=== PATIENT | male | born 1985 | race Caucasian/White ===

== ENCOUNTER 2024-05-22 21:55 | Emergency (ER) | payer OTHER, SELFPAY ==
[2024-05-22 22:01] VITALS: BP 157/83; PULSE 104; RESP 18; TEMP 37.1; O2SAT 98
[2024-05-22] MEDS: ONDANSETRON ODT 4 MG TAB PO (22:36)
[2024-05-22] MEDS: KETOROLAC 10 MG TABLET PO (22:37)
[2024-05-22 22:42] VITALS: BP 142/77; PULSE 104; RESP 18; O2SAT 94
--- OUTSIDE RECORDS SUMMARY | 2024-05-22 22:45 | XMS_ITS | Referral Summary ---
Author Organization [facility] Address [address] [place] [address] Care Team Providers Care Lpn Or Medical Assistant Name Role Phone No Ref-Primary, Physician Primary Care Provider Carlton Levy MD Unavailable [phone] Luciana Austin PA-C Unavailable [phone] Allergies Active Allergy Reactions Criticality Noted Date Comments Cockroach 07/30/2014 Dust Mites 07/30/2014 No Known Drug Allergy 04/16/2012 Shrimp 03/31/2019 Medications EPINEPHrine (EPIPEN/ADRENAC LICK/OR ANY BX GENERIC EQUIV) 0.3 MG/0.3ML injection 2-pack Inject 0.3 mLs (0.3 mg) into the muscle once as needed for anaphylaxis 2 each 0 Active Additional Information Patient not taking.Reported on 09/07/2019 Active Problems Problem Noted Date Diagnosed Date Degeneration of cervical intervertebral disc Brachial neuritis or radiculitis 08/02/2016 Adjustment disorder with mixed anxiety and depre ssed mood 03/08/2015 Parent-child relational problem 03/08/2015 Benign mole 07/03/2014 Overview (07/03/2014): inflamed CARDIOVASCULAR SCREENING; LDL GOAL LESS THAN 130 01/25/2012 Intermittent asthma Immunizations Name Administration Dates Next Due Influenza (IIV3) PF 12/31/2011 TDAP Vaccine (Adacel) 01/25/2012 Social History Tobacco Use Types Packs/Day Years Used Date Smoking Tobacco: Former Cigarettes Smokeless Tobacco: Never Tobacco Cessation:Counseling Given: Not Answered Alcohol Use Standard Drinks/Week Comments Yes 0 (1 standard drink = 0.6 oz pur e alcohol) 1-2/month PHQ-2 Answer Date Recorded PHQ-2 Score 0 11/20/2022 Adolescent Education Answer Date Record ed Getting School Help Needed Not on file 02/03 Sex and Gender Information Value Date Recorded Sex Assigned at Male 11/19/2022 11:58 PM CDT 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 Gender Identity Not on file Sexual Orientation Not on file 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 Not on file Not on file Last Filed Vital Signs Vital Sign Reading Time Taken Comments Blood Pressure 116/70 03/06/2023 6:00 PM CDT Pulse 86 03/06/2023 6:00 PM CDT Temperature 36.8 C (98.3 F) 10/10/2019 6:20 PM CDT Respiratory Rate 26 03/06/2023 6:00 PM CDT Oxygen Saturation 91% 03/06/2023 6:00 PM CDT Inhaled Oxygen Concentration - - Weight 81.6 kg (180 lb) 03/06/2023 4:38 PM CDT Height 165.1 cm (5' 5) 03/06/2023 4:38 PM CDT Body Mass Index 29.95 03/06/2023 4:38 PM CDT Plan of Treatment Not on file Procedures Procedure Name Priority Date/Time Associated Diagnosis Comments BASIC METABOLIC PANEL STAT 10/10/2019 8:55 PM CDT ASTHMA ACTION PLAN Routine 08/22/2016 3: 30 PM CDT Mild intermittent asthma without complication HIV ANTIGEN ANTIBODY COMBO Routine 12/09/2014 4:55 PM CDT Exposure to STD HEPATITIS C ANTIBODY Routine 12/09/2014 4:55 PM CDT Exposure to STD from Last 3 Months or Most Recently Relevant to Health Maintenance Results * (ABNORMAL) Basic metabolic panel (10/10/2019 8:55 PM CDT) Sodium 139 133 - 144 mmol/L 10/10/2019 9:24 PM CDT [facility] Potassium 3.6 3.4 - 5.3 mmol/L 10/10/2019 9:24 PM CDT [facility] Chloride 106 94 - 109 mmol/L 10/10/2019 9:24 PM CDT [facility] Carbon Dioxide 25 20 - 32 mmol/L 10/10/2019 9:32 PM CDT [facility] Anion Gap 8 3 - 14 mmol/L 10/10/2019 9:32 PM CDT [facility] Glucose 120(H) 70 - 99 mg/dL 10/10/2019 9:32 PM CDT [facility] Urea Nitrogen 14 7 - 30 mg/dL 10/10/2019 9:32 PM CDT [facility] Creatinine 0.84 0.66 - 1.25 mg/dL 10/10/2019 9:32 PM T [facility] GFR Estimate >90 >60 mL/min/{1. 73_m2} 10/10/2019 9:32 PM T [facility] Comment: Non GFR Calc Starting 04/29/2018, serum creatinine based estimated GFR (eGFR) will be calculated using the Chronic Kidney Disease Epidemiology Collaboration (CKD-EPI) equation. GFR Estimate If Black >90 >60 mL/min/{1. 73_m2} 10/10/2019 9:32 PM T [facility] Comment: GFR Calc Starting 04/29/2018, serum creatinine based estimated GFR (eGFR) will be calculated using the Chronic Kidney Disease Epidemiology Collaboration (CKD-EPI) equation. Calcium 8.9 8.5 - 10.1 mg/dL 10/10/2019 9:32 PM T [facility] Blood specimen (specimen) 10/10/2019 8:55 PM CDT 10/10/2019 9:09 PM CDT us Aiden Quiñonez MD LAB - BLOOD ORDER KETAN Final Result [facility] [address], [place] [address], [place] [phone] * HIV Antigen Antibody Combo (12/09/2014 4:55 PM CDT) HIV Antigen Antibody Combo Nonreactive HIV-1 p24 Ag & HIV-1/HIV-2 Ab Not Detected NR [facility] Blood specimen (specimen) 12/09/2014 4:55 PM CDT 12/09/2014 5:00 PM CDT Clive Last MD LAB - BLOOD ORDERABLES Final R esult [facility] [address] [place] [address] * Hepatitis C antibody (12/09/2014 4:55 PM CDT) Pathologist [facility] Hepatitis C Antibody Nonreactive Assay performance characteristics have not been established for newborns, infants, and children NR [facility] Blood specimen (specimen) 12/09/2014 4:55 PM CDT 12/09/2014 5:00 PM CDT Clive Last MD LAB - BLOOD ORDERABLES Final R esult Performing Organization Address City/[facility]/ZIP Co de Phone Number [facility] [address] [place] [address] from Last 3 Months or Most Recently Relevant to Health Maintenance Insurance [facility] Advance Directives For more information, please contact: [phone] * Full Code (Latest Code Status on File) Date Activated Date Inactivated Comments 07/08/2012 2:24 PM 11/05/2018 3:08 AM Care Teams Lpn Or Medical Assistant Relationship Specialty Start Date End Date No Ref-Primary, Physician PCP - General 03/16/19 Carlton Levy MD [address] [place] [address] [id number] Fellow Gastroenterology 11/15/22 Luciana Austin PA-C [address] [place] [address] Physician Yarn Dry Room Worker Family Medicine 11/15/22
--- OUTSIDE RECORDS SUMMARY | 2024-05-22 22:45 | XMS_ITS | Encounter Summary ---
Author Organization [facility] Address [address] [place] [address] Care Team Providers Care Formula Checker Name Role Phone No Ref-Primary, Physician Primary Care Provider Carlton Levy MD Unavailable [phone] Luciana Austin PA-C Unavailable [phone] Luciana Austin PA-C Unavailable [phone] Encounter Details Date Type Department Care Team (Late st Contact Info) Description 02/19/2023 [facility] [address] [place] [address] Sandra Allan RN Social History Tobacco Use Types Packs/Day Years Used Date Smoking Tobacco: Some Days Cigarettes Smokeless Tobacco: Never Alcohol Use Standard Drinks/Week Comments Yes 0 (1 standard drink = 0.6 oz pur e alcohol) 6-7 drinks per month PHQ-2 Answer Date Recorded PHQ-2 Score 0 11/20/2022 Adolescent Education Answer Date Record ed Getting School Help Needed Not on file 02/03 Sex and Gender Information Value Date Recorded Sex Assigned at Male 11/19/2022 11:58 PM CDT 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 Gender Identity Not on file Sexual Orientation Not on file 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 Not on file Not on file documented as of this encounter Plan of Treatment Not on file documented as of this encounter Visit Diagnoses Not on filedocumented in this encounter Additional Health Concerns Assessment Noted Time PHQ-9 Depression Total Score: 7 03/08/20 15 7:31 AM CDT documented as of this encounter Care Teams Formula Checker Relationship Specialty Start Date End Date No Ref-Primary, Physician PCP - General 03/16/19 Carlton Levy MD [address] [place] [address] [id number] Fellow Gastroenterology 11/15/22 Luciana Austin PA-C [address] [id number] Physician Flex O Writer Operator Family Medicine 11/15/22 Luciana Austin PA-C [address] [place] [address] [phone] Assigned Neuroscience Provider 11/17/22 06/05/23 documented as of this encounter
--- OUTSIDE RECORDS SUMMARY | 2024-05-22 22:45 | XMS_ITS | Clinical Summary ---
Author Organization [facility] Address [place], [place] [address] Care Team Providers Care Gastroenterology Teacher Name Role Phone Pcp, No Primary Care Provider Unavailabl e Allergies No known active allergies Medications albuterol HFA (PROAIR HFA) 90 mcg/Actuation inhaler Inhale 2 Puffs by mouth every 6 hours if needed. 1 Inhaler 6 0 Active azithromycin (ZITHROMAX Z-EVER) 250 mg tablet Take 500 mg (2 tabs) by mouth on day 1, then 250 mg (1 tab) daily for days 2-5. 6 tablet 0 0 Active methylPREDNISol one (MEDROL, EVER,) 4 mg tablet Take by mouth. Take by mouth as instructed per packaging. 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 Gender Identity Not on file Sexual Orientation Not on file Obstetrics History Last Filed Vital Signs Vital Sign Reading Time Taken Comments Blood Pressure 132/81 04/18/2020 4:52 PM [employer] Pulse 68 04/18/2020 4:52 PM [employer] Temperature 36.9 C (98.4 F) 04/18/2020 4:52 PM [employer] Respiratory Rate 16 04/18/2020 4:52 PM [employer] Oxygen Saturation 99% 04/18/2020 4:52 PM [employer] Inhaled Oxygen Concentration - - Weight 73.5 kg (162 lb) 02/27/2010 4:02 PM CDT Height 165.1 cm (5' 5) 11/23/2009 11:46 AM CDT Body Mass Index 26.96 11/23/2009 11:46 AM CDT Plan of Treatment Health Maintenance Due Date Last Done Comments Tdap 1996 Depression screening for age 12+ 1997 HIV for age 15-65 2000 BMI (ht and wt on same day) for age 18+ 08/28/2003 Hepatitis C screening for ag e 18-79 08/28/2003 Tetanus booster 05/13/2014 05/13/2004 Lipids for age 35-44 2020 COVID-19 vaccine series (2023- season) 2024 10/12/2020, 09/21/2020 Influenza for age 9-49 01/12/2024 Pneumococcal series for age 6-49 Aged Out No longer eligible b ased on patient's age to complete this topic Care Teams Gastroenterology Teacher Relationship Specialty Start Date End Date Pcp, No . PCP - General 12/12/10
--- OUTSIDE RECORDS SUMMARY | 2024-05-22 22:45 | XMS_ITS | Encounter Summary ---
Author Organization [facility] Address [address] [facility] [place] [address] Care Team Providers Care Editorial Cartoonist Name Role Phone No Ref-Primary, Physician Primary Care Provider Carlton Levy MD Unavailable [phone] Luciana Austin PA-C Unavailable [phone] Luciana Austin PA-C Unavailable [phone] Encounter Details Date Type Department Care Team (Late st Contact Info) Description 01/04/2023 [facility] Clinic [address] [place] [address] [place] Social History Tobacco Use Types Packs/Day Years Used Date Smoking Tobacco: Some Days Cigarettes Smokeless Tobacco: Never Alcohol Use Standard Drinks/Week Comments Yes 0 (1 standard drink = 0.6 oz pur e alcohol) 6-7 drinks per month PHQ-2 Answer Date Recorded PHQ-2 Score 0 11/20/2022 Sex and Gender Information Value Date Recorded Sex Assigned at Male 11/19/2022 11:58 PM CDT 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 Gender Identity Not on file Sexual Orientation Not on file 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 Not on file Not on file documented as of this encounter Plan of Treatment Not on file documented as of this encounter Visit Diagnoses Not on filedocumented in this encounter Additional Health Concerns Assessment Noted Time PHQ-9 Depression Total Score: 7 03/08/20 15 7:31 AM CDT documented as of this encounter Care Teams Editorial Cartoonist Relationship Specialty Start Date End Date No Ref-Primary, Physician PCP - General 03/16/19 Carlton Levy MD [address] [place] [address] Fellow Gastroenterology 11/15/22 Luciana Austin PA-C [address] [place] [address] Physician Wad Impregnator Family Medicine 11/15/22 Luciana Austin PA-C [address] [place] [id number] Assigned Neuroscience Provider 11/17/22 06/05/23 documented as of this encounter
--- OUTSIDE RECORDS SUMMARY | 2024-05-22 22:45 | XMS_ITS | Clinical Summary ---
Author Organization [facility] Address [address] [facility] [place] [address] Care Team Providers Care Work Distributor Name Role Phone No Ref-Primary, Physician Primary Care Provider Carlton Levy MD Unavailable [phone] Luciana Austin PA-C Unavailable [phone] Allergies Active Allergy Reactions Criticality Noted [...] (IIV3) PF 12/31/2011 TDAP Vaccine (Adacel) 01/25/2012 Family History Medical History Relation Comments Substance Abuse Father Depression Mother Family History Negative Other Substance Abuse Paternal Uncle Relation Status Comments Brother 1 Alive Brother 2 Alive Brother 3 Alive Brother 4 Alive Brother 5 Alive Brother 6 Alive Brother 7 Alive Daughter 1 Alive Daughter 2 Alive Father Maternal Grandfather Maternal Grandmother Alive Mother Alive Other Paternal Grandfather Paternal Grandmother Alive Paternal Uncle Sister 1 Alive Sister 2 Alive Social History Tobacco Use Types Packs/Day Years [...] PM CDT 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 Gender Identity Not on file Sexual Orientation Not on file 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 Not on file Not [...] 03/06/2023 4:38 PM CDT Plan of Treatment Health Maintenance Due Date Last Done Comments ADVANCE CARE PLANNING 1985 ANNUAL REVIEW OF HM ORDERS 1985 YEARLY PREVENTIVE VISIT 1988 HEPATITIS B IMMUNIZATION (1 of 3 - 19+ 3-dose series) 2004 Pneumococcal Vaccine: Pediatrics (0 to 5 Years) and At-Risk Patients (6 to 49 Years) (1 of 2 - PCV) 2004 ASTHMA CONTROL TEST 02/21/2017 08/22/2016 ASTHMA ACTION PLAN 08/22/2017 08/22/2016, 0 08/22/2016, 08/22/2016, Additional history exists DTAP/TDAP/TD IMMUNIZATION (3 - Td or Tdap) 01/24/2022 01/25/2012, 05/13/2004 GLUCOSE 10/09/2022 10/10/2019, 03/13, 03/31/2019, Additional history exists COVID-19 Vaccine ( season) 2024 10/12/2020, 09/21/2020 INFLUENZA VACCINE (#1) 2024 12/31/2011 PHQ-2 (once per calendar year) 2024 11/20/2022, 08/22/2016, 03/07/2015 RSV VACCINE (1 - 1-dose 75+ series) 2060 HEPATITIS C SCREENING Completed 12/09/2014 HIV SCREENING Completed 12/09/2014, 01/25/2012 HPV IMMUNIZATION Aged Out No longer e ligible based on patient's age to complete this topic MENINGITIS IMMUNIZATION Aged Out No l onger eligible based on patient's age to complete this topic RSV MONOCLONAL ANTIBODY Aged Out No l onger eligible based on patient's age to complete this topic Procedures Procedure Name Priority Date/Time Associated Diagnosis [...] - 144 mmol/L 10/10/2019 9:[address] [facility] Potassium 3.6 3.4 - 5.3 mmol/L 10/10/2019 9:[address] [facility] Chloride 106 94 - 109 mmol/L 10/10/2019 9:[address] [facility] Carbon Dioxide 25 20 - 32 mmol/L 10/10/2019 9:[address] [facility] Anion Gap 8 3 - 14 mmol/L 10/10/2019 9:[address] [facility] Glucose 120(H) 70 - 99 mg/dL 10/10/2019 9:[address] [facility] Urea Nitrogen 14 7 - 30 mg/dL 10/10/2019 9:[address] [facility] Creatinine 0.84 0.66 - 1.25 mg/dL 10/10/2019 9:[address] [facility] GFR Estimate >90 >60 mL/min/{1. 73_m2} 10/10/2019 9:[address] [facility] Comment: Non GFR Calc Starting 04/29/2018, serum creatinine based estimated GFR (eGFR) will be calculated using the Chronic Kidney Disease Epidemiology Collaboration (CKD-EPI) equation. GFR Estimate If Black >90 >60 mL/min/{1. 73_m2} 10/10/2019 9:[address] [facility] Comment: GFR Calc Starting 04/29/2018, serum creatinine based estimated GFR (eGFR) will be calculated using the Chronic Kidney Disease Epidemiology Collaboration (CKD-EPI) equation. Calcium 8.9 8.5 - 10.1 mg/dL 10/10/2019 9:[address] [facility] Blood specimen (specimen) 10/10/2019 8:55 PM CDT 10/10/2019 9:09 PM CDT us Aiden Quiñonez MD LAB - BLOOD ORDER KETAN Final Result [facility] [address] [address], [facility] [phone] * HIV Antigen Antibody Combo (12/09/2014 4:55 PM CDT) HIV Antigen Antibody Combo Nonreactive HIV-1 p24 Ag & HIV-1/HIV-2 Ab Not Detected NR [facility] Blood specimen (specimen) 12/09/2014 4:55 PM CDT 12/09/2014 5:00 PM CDT us Clive Last MD LAB - BLOOD ORDERABLES Final R esult Performing Organization Address City/[facility] Co de Phone Number [facility] [address] [place] [address] * Hepatitis C antibody (12/09/2014 4:55 PM CDT) Hepatitis C Antibody Nonreactive Assay performance characteristics have not been established for newborns, infants, and children NR [facility] Blood specimen (specimen) 12/09/2014 4:55 PM CDT 12/09/2014 5:00 PM CDT Clive Last MD LAB - BLOOD ORDERABLES Final R esult Performing Organization Address City/[facility] Co de Phone Number [facility] [address] [place] [address] from Last 3 Months or Most Recently Relevant to Health Maintenance Insurance [facility] Advance Directives For more information, please contact: [phone] * Full Code (Latest Code Status on File) Date Activated Date Inactivated Comments 07/08/2012 2:24 PM 11/05/2018 3:08 AM Care Teams Work Distributor Relationship Specialty Start Date End Date No Ref-Primary, Physician PCP - General 03/16/19 Carlton Levy MD [address] [place] [address] [address] [place] [address] Fellow Gastroenterology 11/15/22 Luciana Austin PA-C [address] [place] [address] Physician Movie Star Family Medicine 11/15/22
--- OUTSIDE RECORDS SUMMARY | 2024-05-22 22:45 | XMS_ITS | Encounter Summary ---
Author Organization [facility] Address [address] [facility] 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 Gender Identity Not on file Sexual Orientation Not on file 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 Not on file Not on file documented as of this encounter Plan of Treatment Not on file documented as of this encounter Visit Diagnoses Not on filedocumented in this encounter Additional Health Concerns Assessment Noted Time PHQ-9 Depression Total Score: 7 03/08/20 15 7:31 AM CDT documented as of this encounter Care Teams Manager Country Relationship Specialty Start Date End Date No Ref-Primary, Physician PCP - General 03/16/19 Carlton Levy MD [address] [place] [address] [phone] Fellow Gastroenterology 11/15/22 Luciana Austin PA-C [address] [id number] Physician Financial Aids Officer Family Medicine 11/15/22 Luciana Austin PA-C [address] [place] [address] [phone] Assigned Neuroscience Provider 11/17/22 06/05/23 documented as of this encounter
--- NOTE | 2024-05-22 22:54 | ED_ITS ---
HPI - General Adult General Chief complaint: Extremity Pain/Injury, Upper Stated complaint: rapid heartrate/dizzy Time Seen by Provider: 05/22/24 22:05 Source: patient Mode of arrival: ambulatory Limitations: no limitations History of Present Illness HPI narrative: 30-year-old male presents to the emergency department with pain in the left shoulder area. He is uncertain if this is related to his heart or if this is just a slightly different presentation of his ongoing shoulder pain. He denies extensive use of the shoulder recently which tends to flare up his symptoms. His symptoms started at rest, 0 while sitting down. Achiness in the left anterior deltoid area radiates into the left anterior superficial Hypaque area. No shortness of breath, no worsening with exertion. Points also to the left trapezius area and states that sometimes he has pain in that area as well. He feels a little unwell, some body aches, nauseated. Reports he vomited x1 but then was able to eat dinner with no difficulty. [place] chilled and slightly lightheaded. Symptoms started just this evening. Reports that his fiancee has upper respiratory infection symptoms but he has not had any known exposures to influenza, RSV or other major illness. No diarrhea, no bloody stools, no palpitations. No prior history of cardiac disease. No history of DVT or PE. No shortness of breath or productive cough. Did not try any medications to help with symptoms. He is mostly just worried about his heart today and wants to make sure that this is nothing serious. States that his past medical history is benign, denies any major long-term health problems, no prescription medications. Allergies to shrimp and shellfish. Nonsmoker. No other cardiac risk factors. ROS is notable for the generalized and musculoskeletal/possibly cardiovascular symptoms as above, otherwise denies times 12 systems. Related Data Home Medications ?Medication ?Instructions ?Recorded ?Confirmed No Known Home Medications 05/22/24 05/22/24 Allergies Allergy/AdvReac Type Severity Reaction Status Date / Time shellfish derived Allergy Severe Anaphylaxis Verified 05/22/24 22:35 shrimp Allergy Severe Anaphylaxis Verified 05/22/24 22:35 [facility] Social History Smoking Status: Unknown if ever smoked Non-prescribed substance use: denies use Exam Const: Vital Signs, click to edit/add: Vital Signs - 24 hr 05/22/24 22:01 05/22/24 22:42 Temperature 98.7 F Pulse Rate 104 H Pulse Rate [Left P ulse Oximeter] 104 H Respiratory Rate 18 18 Blood Pressure 142/77 H Blood Pressure [Ri ght Upper Arm] 157/83 H Pulse Oximetry 98 94 Oxygen Delivery Me thod Room Air Room Air Documenting provider has reviewed patient's vital signs: yes Common normals: no apparent distress and alert General appearance: cooperative and well kempt Other: Mildly anxious but answers questions appropriately. Insurance Policy Issue Clerk declined HENMT: Common normals: normocephalic Head and scalp: normal to inspection and normocephalic Face and sinus: normal facial exam Mouth: oral and palatal mucosa normal and moist mucous membranes abnormal Eye: Other: Conjunctiva injected as are sclera, no exudate. Normal appearing pupils. Normal extraocular movements Neck & C-Spine: Common normals: full ROM Other: Mild anterior cervical and submandibular lymphadenopathy normal range of motion. Chest: Common normals: inspection of chest normal Resp: Common normals: normal respiratory effort, no use of accessory muscles and clear to auscultation bilaterally Effort & inspection: able to speak in complete sentences Auscultation: clear to auscultation bilaterally Cardio: Common normals: regular rate, regular rhythm, S1 normal heart sound, S2 normal heart sound and no murmurs Rate: regular rate Rhythm: regular rhythm Heart sounds: S1 normal and S2 normal GI: Common normals: Normal to inspection, nondistended, normoactive bowel sounds present, soft to palpation, non-tender, no hepatosplenomegaly and no masses Palpation: soft and no hepatosplenomegaly Extremity: Other: Normal range of motion of both shoulders. No point bony tenderness to the cervical spine. Normal strength of shoulders, elbows. Normal biceps. Positive impingement left supraspinatus rotator cuff area, mild. Neuro: Common normals: moves all extremities and no focal motor deficits Sensorium/orientation: alert Motor exam: no movement abnormalities noted Psych: Appearance: well kempt Attitude: engaged Activity/motor behavior: appropriate eye contact Insight: insight good Judgement: judgment good Skin: Common normals: no rashes or lesions noted General skin exam: no rashes or lesions noted Course Course ED Course: 38-year-old male with left shoulder/upper chest pain with nonspecific symptoms of body aches, chills, vomiting. I suspect that this is influenza, we are seeing a lot of this right now. Cannot exclude acute coronary syndrome, acute on chronic rotator cuff injury, gastroenteritis, other viral illness. Patient without signs of dehydration at this point, has been holding down fluids without difficulty. No hypoxia. No tachypnea. I recommended viral swabs as he is symptomatic for less than 24 hours in may benefit from antiviral medication. Will give Toradol and Zofran and re-evaluate. I do think that he also has a chronic rotator cuff strain that may be contributing but would not explain his acute symptoms. Reevaluation(s) Time of Reevaluation #1: 23:33 Reevaluation #1: Patient sleeping, woke him to review the results of the viral swab. Feeling much better after the Toradol and Zofran. Heart rate is back in the 70s. Viral swabs are negative, sensitivity discussed, false negatives are certainly possible especially since he has only been symptomatic for the last few hours. There are no alarm symptoms on his EKG. Vitals are stable. I do not recommend further workup. Alarm symptoms reviewed that would warrant ED presentation. Prescriptions for Toradol and Zofran given for symptomatic care. Does likely have influenza or other similar illness. Written instructions provided. Follow up if needed. No treatment needed for rotator cuff issues unless it interferes with everyday activities. Vital Signs Vital signs: Initial Vital Signs Temperature 98.7 F 05/22/24 22:01 Temperature Source Temporal Artery Scan 05/22/24 22:01 Pulse Rate 104 H 05/22/24 22:01 Pulse Rhythm Regular 05/22/24 22:01 Respiratory Rate 18 05/22/24 22:01 Blood Pressure 157/83 H 05/22/24 22:01 Blood Pressure Mean 107 H 05/22/24 22:01 Blood Pressure Position Sitting 05/22/24 22:01 Pulse Oximetry 98 05/22/24 22:01 Oxygen Delivery Method Room Air 05/22/24 22:01 Vital Signs Temperature 98.7 F 05/22/24 22:01 Pulse Rate 104 H 05/22/24 22:01 Respiratory Rate 18 05/22/24 22:01 Blood Pressure 157/83 H 05/22/24 22:01 Pulse Oximetry 98 05/22/24 22:01 Oxygen Delivery Method Room Air 05/22/24 22:01 Temperature 98.7 F 05/22/24 22:01 Pulse Rate 104 H 05/22/24 22:42 Respiratory Rate 18 05/22/24 22:42 Blood Pressure 142/77 H 05/22/24 22:42 Pulse Oximetry 94 05/22/24 22:42 Oxygen Delivery Method Room Air 05/22/24 22:42 Medications Administered Medications: Discontinued Medications Generic Name Dose Route Start Last Admin Trade Name Suki PRN Reason Stop Dose Admin Ketorolac Tromethamine 10 mg 05/22/24 22:27 05/22/24 22:37 Ketorolac 10 Mg Tablet PO 05/22/24 22:28 10 mg ONCE ONE Administration Ondansetron HCl 4 mg 05/22/24 22:27 05/22/24 22:36 Ondansetron Odt 4 Mg Tab PO 05/22/24 22:28 4 mg ONCE ONE Administration Medical Decision Making Lab Data Lab results reviewed: Yes I reviewed the patient's lab results Lab results narrative: Viral swabs negative Labs: Lab Results 05/22/24 Range/Units 22:30 SARS-CoV-2 (PCR) Negative SARS-CoV-2 (Negative) Influenza Type A (PCR) Negative PCR FLU A (Negative) Influenza Type B (PCR) Negative PCR FLU B (Negative) RSV (PCR) Negative PCR RSV (Negative) ECG Data Attestation: I personally reviewed and interpreted this ECG as follows: Prior ECG tracings: not available for review Interpretation: Sinus rhythm rate of 96. Normal intervals and axis. No significant ST or T- wave abnormalities. Normal EKG. Discharge Plan Discharge Clinical Impression: Influenza-like illness, Dysfunction of left rotator cuff Patient Disposition: Home, Self-Care Condition: Improved Instructions: Influenza (DC) Additional Instructions: As we discussed, your EKG looks perfectly normal. There are no signs of abnormal heart rhythm, heart attack or other dangerous condition. You do have some signs of a chronic rotator cuff strain but that is not dangerous to you. Her swabs were negative but as we discussed, it sometimes can take a day or 2+ for those to turn positive. I still think that you probably do have influenza. This is characterized by headache, fatigue, body aches, nausea and dizziness and lasts 5-6 days. I am glad that the Toradol and Zofran were helpful for you. I have provided you with additional prescriptions for these. The ondansetron, also known as Zofran is the anti nausea medicine and can be taken up to every 6 hours as needed for nausea and vomiting. The Toradol also known as ketorolac is an anti-inflammatory medicine similar to but stronger than ibuprofen and Aleve. Take 1 tablet up to every 6 hours. Do not take additional ibuprofen or Aleve while your taking the Toradol. He may also use Tylenol also known as acetaminophen a 1000 mg every 6 hours as needed. You may develop fever, this is not worrisome. You should come back to the emergency department if you have persistently high fevers, severe weakness, severe shortness of breath or other alarming symptoms. Try to quarantine for the next 48 hours if you are still feeling ill. Activity Level: Activity as Tolerated Discharge Diet: Regular Prescriptions: No Action No Known Home Medications Follow Up/Referrals: Provider,Not a Local [Primary Care Provider] - Stand Alone Forms: [employer] Info Instructions
[2024-05-22 23:02] VITALS: BP 124/72; PULSE 83; RESP 18; O2SAT 97
[2024-05-22 23:23] LABS: PCR FLU A Negative PCR FLU A (Negative); PCR FLU B Negative PCR FLU B (Negative); PCR RSV Negative PCR RSV (Negative); SARS PCR* Negative SARS-CoV-2 (Negative)
[2024-05-22 23:32] VITALS: BP 123/73; PULSE 79; RESP 18; O2SAT 94
== END 2024-05-22 23:37 | disposition home or self-care (01) ==
PROVIDERS: Emergency Provider Family Medicine
DX: J11.1 Influenza due to unidentified influenza virus with other respiratory manifestations (principal); M75.122 Complete rotator cuff tear or rupture of left shoulder, not specified as traumatic
CPT/HCPCS: 87631; 93005; 99284; A9270